=== PATIENT | male | born 1955 | race Caucasian/White ===

== ENCOUNTER → 2017-02-27 | Outpatient (CLI) | payer MEDICAID ==
[~2017-02-27] MED LIST: AMIT100T2 PO; AMOX-358 PO; ATOR40TA70 PO; CYAN10006 PO; GABA800T2 PO; GLIM4TAB PO; HYDR-3820 PO; INSU100V6 SQ; IPRA3AMP IH; LISI-556 PO; MUPI15CR11 TP; OXYC-197 PO; PANT40TA3 PO; PIOG45TA7 PO; PRED10TA22 PO; RANI150T15 PO; TEST200V21 IM
--- NOTE | 2017-02-27 12:01 | Diagnostic Imaging Report ---
PROCEDURE: MRI lumbar spine. TECHNIQUE: Multiplanar, multisequence MRI of the lumbar spine was performed without contrast. INDICATION: Low back pain. The patient has a history of prior lumbar spine surgery. No prior MRI studies are available for comparison. FINDINGS: Curvature and alignment of the lumbar spine is normal. There are postop changes of posterior instrumented fusion with vertical stabilization rods and bipedicular screws transfixing the L4-S1 levels. The vertebral body heights are maintained. No geographic marrow lesion or acute compression fracture is detected. There is generalized degenerative disc disease with disc desiccation noted. T12-L1: There is broad-based disc/osteophyte complex indenting the ventral thecal sac but no significant resultant central canal or neuroforaminal stenosis is identified. L1-L2: No central canal or neuroforaminal stenosis is identified. L2-L3: There is a wide-based midline disc bulge indenting the ventral thecal sac. This does produce moderate narrowing of the central canal. No significant neuroforaminal stenosis is seen. L3-L4: There are bulky hypertrophic facet degenerative changes. There is also ligamentous thickening and broad-based disc/osteophyte complex. This does result in severe trefoil stenosis of the central canal. There is also bilateral lateral recess stenosis and right greater than left neuroforaminal stenosis. L4-L5: Postop changes of laminectomy are noted. The central canal is widely patent. There is moderate bilateral neuroforaminal stenosis due to disc/osteophyte complex. L5-S1: There are hypertrophic facet changes. Central canal is patent. Mild bilateral neuroforaminal stenosis is seen. IMPRESSION: Postop changes of posterior instrumented fusion L4-S1. There is multilevel central canal, lateral recess and neuroforaminal stenosis described level by level above, most severe at the L3-L4 level. There is also a wide-based midline disc bulge noted at the L2-L3 level. Dictated by: Dictated on workstation # [id number]
== END ==
LOC: RAD 10:19
PROVIDERS: ATTEND Family Medicine
DX: M48.07 Spinal stenosis, lumbosacral region (principal); M51.26 Other intervertebral disc displacement, lumbar region; W19.XXXA Unspecified fall, initial encounter; Z98.1 Arthrodesis status
CPT/HCPCS: 72148